=== PATIENT | male | born 1965 | race Caucasian/White ===

== ENCOUNTER 2017-04-15 14:36 | Emergency (ER) | payer SELFPAY ==
[2017-04-15] MEDS ORDERED: NS 1,000 ML IV ONE (14:44)
[2017-04-15] MEDS ORDERED: levETIRAcetam 1,000 MG in NS 100 ML IV ONE (14:45)
--- NOTE | 2017-04-15 14:48 | EDPHY ---
H & P Stated Complaint: mult seizures HPI/ROS: CHIEF COMPLAINT: Seizure HISTORY OF PRESENT ILLNESS: The patient is a 51-year-old man who comes to the emergency department after a seizure this morning. He has a history of epilepsy but does not take any anti seizure medication. He also has a history of clotting disorder factor 5 Leiden and takes Xarelto daily. He states that he discontinued all of his other medication about 5 weeks ago because he did not like the side effects. He has not been on a seizure medication that he can list. He had a seizure last night that was uneventful except for abrasions to his nose. This morning he had a 2nd seizure in the gravel driveway witnessed by his friend. It lasted for less than a minute. He has abrasions to his left eyebrow. He states that his vision is normal. He denies headache or neck pain. He was incontinent of urine and has abrasion to the left side of his tongue. He was given Zofran by EMS. REVIEW OF SYSTEMS: Constitutional: denies: chills, fever, recent illness, recent injury EENTM: denies: blurred vision, double vision, nose congestion Respiratory: denies: cough, shortness of breath Cardiac: denies: chest pain, irregular heart rate, lightheadedness, palpitations Gastrointestinal/Abdominal: denies: abdominal pain, diarrhea, nausea, vomiting, blood streaked stools Genitourinary: denies: dysuria, frequency, hematuria, pain Musculoskeletal: denies: joint pain, muscle pain Skin: denies: lesions, rash, jaundice, bruising Neurological: See HPI denies: headache, numbness, paresthesia, tingling, dizziness, weakness Hematologic/Lymphatic: denies: blood clots, easy bleeding, easy bruising Immunologic/allergic: denies: HIV/AIDS, transplant EXAM: GENERAL: Well-appearing, well-nourished and in no acute distress. HEAD: Atraumatic, normocephalic. EYES: Pupils equal round and reactive to light, extraocular movements intact, sclera anicteric, conjunctiva are normal. ENT: TMs normal, nares patent, mild excoriation to left side of tongue. Moist mucous membranes. NECK: Normal range of motion, supple without lymphadenopathy or JVD. LUNGS: Breath sounds clear to auscultation bilaterally and equal. No wheezes rales or rhonchi. HEART: Regular rate and rhythm without murmurs, rubs or gallops. ABDOMEN: Soft, nontender, normoactive bowel sounds. No guarding, no rebound. No masses appreciated. BACK: No CVA tenderness, no spinal tenderness, step-offs or deformities EXTREMITIES: Normal range of motion, no pitting or edema. No clubbing or cyanosis. NEUROLOGICAL: Cranial nerves II through XII grossly intact. Normal speech, normal gait. 5/5 strength, normal movement in all extremities, normal sensation PSYCH: Normal mood, normal affect. SKIN: Abrasions to nose and left eyebrow. Source: Patient, EMS Exam Limitations: No limitations - Medical/Surgical History Hx Asthma: No Hx Chronic Respiratory Disease: No Hx Diabetes: No Hx Cardiac Disease: No Hx Renal Disease: No Hx Cirrhosis: No Other PMH: seizures, Factor 5 clotting - Family History Significant Family History: No pertinent family hx - Social History Smoking Status: Light smoker Alcohol Use: Sober Drug Use: None Constitutional: Initial Vital Signs Temperature (C) 36.5 C 04/15/17 14:41 Heart Rate 92 04/15/17 14:41 Respiratory Rate 18 04/15/17 14:41 Blood Pressure 156/109 H 04/15/17 14:41 O2 Sat (%) 92 04/15/17 14:41 O2 Delivery Mode Room Air O2 (L/minute) 2 Allergies/Adverse Reactions: No Known Allergies Allergy (Unverified 04/15/17 14:45) Home Medications: Medication Instructions Recorded levETIRAcetam [Keppra 500 mg (*)] 500 mg PO BID #60 tab 04/15/17 Medical Decision Making - Diagnostics Imaging Results: Imaging Impressions Head CT 04/15/17 14:45 Impression: 1. Depressed comminuted nasal bone fractures with displacement toward the left. 2. Moderate sinusitis. 3. No intracranial hemorrhage or epidural/subdural hematoma. 4. Consider MRI of the brain without and with contrast enhancement, if there is continued clinical concern. Findings and recommendations discussed with Emergency Department physician, Niels Hunter, at 1524 hours, 04/15/2017. Final report concurs with initial preliminary interpretation. ED Course/Re-evaluation: 4:00 p.m. the patient is feeling completely better. He has received Keppra here and I will give him prescription for the same. He agrees to take it. His head CT is reassuring. No suturable laceration seen. He declines further workup or testing is eager to go home. Differential Diagnosis: Partial list of the Differential diagnosis considered include but were not limited to; seizure, intracranial hemorrhage, abrasion and although unlikely based on the history and physical exam, I also considered fracture, neck injury , withdrawal. I discussed these differential diagnoses and the plan with the patient as well as the usual and expected course. The patient understands that the diagnosis is provisional and that in medicine we are not always correct and that further workup is often warranted. Usual and customary warnings were given. All of the patient's questions were answered. The patient was instructed to return to the emergency department should the symptoms at all worsen or return, otherwise to followup with the physician as we discussed. - Data Points Laboratory Results: Laboratory Results 04/15/17 14:21 04/15/17 14:21 04/15/17 04/15/17 04/15/17 14:21 14:21 14:21 WBC 12.22 10^3/uL H 10^3/uL (3.80-9.50) RBC 5.05 10^6/uL 10^6/uL (4.40-6.38) Hgb 17.2 g/dL g/dL (13.7-17.5) Hct 49.9 % % (40.0-51.0) MCV 98.8 fL fL (81.5-99.8) MCH 34.1 pg pg (27.9-34.1) MCHC 34.5 g/dL g/dL (32.4-36.7) RDW 15.9 % H % (11.5-15.2) Plt Count 186 10^3/uL 10^3/uL (150-400) MPV 10.0 fL fL (8.7-11.7) Neut % (Auto) 80.5 % H % (39.3-74.2) Lymph % (Auto) 10.2 % L % (15.0-45.0) [place] % (Auto) 8.3 % % (4.5-13.0) Eos % (Auto) 0.2 % L % (0.6-7.6) Baso % (Auto) 0.3 % % (0.3-1.7) Nucleat RBC Rel Count 0.0 % % (0.0-0.2) Absolute Neuts (auto) 9.84 10^3/uL H 10^3/uL (1.70-6.50) Absolute Lymphs (auto) 1.25 10^3/uL 10^3/uL (1.00-3.00) Absolute Monos (auto) 1.01 10^3/uL H 10^3/uL (0.30-0.80) Absolute Eos (auto) 0.02 10^3/uL L 10^3/uL (0.03-0.40) Absolute Basos (auto) 0.04 10^3/uL 10^3/uL (0.02-0.10) Absolute Nucleated RBC 0.00 10^3/uL 10^3/uL (0-0.01) Immature Gran % 0.5 % % (0.0-1.1) Immature Gran # 0.06 10^3/uL 10^3/uL (0.00-0.10) PT 13.2 SEC SEC (12.0-15.0) INR 1.01 (0.83-1.16) Sodium 142 mEq/L mEq/L (134-144) Potassium 3.4 mEq/L L mEq/L (3.5-5.2) Chloride 98 mEq/L mEq/L (97-110) Carbon Dioxide 15 mEq/l L mEq/l (22-31) Anion Gap 29 mEq/L H mEq/L (8-16) BUN 16 mg/dL mg/dL (7-23) Creatinine 1.1 mg/dL mg/dL (0.7-1.3) Estimated GFR > 60 Glucose 105 mg/dL H mg/dL (70-100) Calcium 9.7 mg/dL mg/dL (8.5-10.4) Medications Given: Discontinued Medications Sodium Chloride (Ns) 1,000 mls @ 0 mls/hr IV ONCE ONE; Wide Open PRN Reason: Protocol Stop: 04/15/17 14:45 Last Admin: 04/15/17 15:29 Dose: 1,000 mls Levetiracetam 1,000 mg/ Sodium (Chloride) 110 mls @ 440 mls/hr IV EDNOW ONE Stop: 04/15/17 14:59 Last Admin: 04/15/17 15:49 Dose: 110 mls Lorazepam (Ativan Injection) 1 mg IVP EDNOW ONE Stop: 04/15/17 15:02 Last Admin: 04/15/17 15:30 Dose: 1 mg Departure - Departure Disposition: Home, Routine, Self-Care Clinical Impression: Seizure disorder, Abrasion Condition: Fair Instructions: Abrasion (ED), Recurrent Seizures in Adults (ED) Referrals: Patient,NotPresent [Unknown] - As per Instructions Niels Altamirano DO [Doctor of Osteopathy] - As per Instructions Prescriptions: levETIRAcetam [Keppra 500 mg (*)] 500 mg PO BID #60 tab
[2017-04-15 14:56] LABS: % IMMATURE GRANULYOCYTES 0.5 % (0.0-1.1); ABSOLUTE IMMATURE GRANULOCYTES 0.06 10^3/uL (0.00-0.10); ADD DIFF? NO; ADD MORPH? NO; ADD SCAN? NO; ATYPICAL LYMPHOCYTE FLAG 0 (0-99); FRAGMENT RBC FLAG 0 (0-99); HEMATOCRIT 49.9 % (40.0-51.0); HEMOGLOBIN 17.2 g/dL (13.7-17.5); LEFT SHIFT FLG 0 (0-99); LIPEMIA HEMOLYSIS FLAG 90 (0-99); MEAN CELL HEMOGLOBIN 34.1 pg (27.9-34.1); MEAN CELL HEMOGLOBIN CONCENTR. 34.5 g/dL (32.4-36.7); MEAN CELL VOLUME 98.8 fL (81.5-99.8); PLATELET CLUMPS FLAG 0 (0-99); PLATELET COUNT 186 10^3/uL (150-400); RED BLOOD CELL COUNT 5.05 10^6/uL (4.40-6.38); RED CELL DISTRIBUTION WIDTH 15.9 % (11.5-15.2)
[2017-04-15] MEDS ORDERED: LORazepam 2 MG/ML INJ ONE (14:58)
[2017-04-15] MEDS ORDERED: LORazepam 2 MG/ML INJ IVP ONE (15:01)
[2017-04-15 15:03] LABS: INR 1.01 (0.83-1.16); PROTIME(PATIENT) 13.2 SEC (12.0-15.0)
[2017-04-15 15:07] VITALS: RESP 18
[2017-04-15 15:09] LABS: ANION GAP 29 mEq/L (8-16); CALCIUM 9.7 mg/dL (8.5-10.4); CARBON DIOXIDE 15 mEq/l (22-31); CHLORIDE 98 mEq/L (97-110); CREATININE 1.1 mg/dL (0.7-1.3); GLOMERULAR FILTRATION RATE > 60; GLUCOSE 105 mg/dL (70-100); POTASSIUM 3.4 mEq/L (3.5-5.2); SODIUM 142 mEq/L (134-144)
[2017-04-15 16:40] VITALS: BP 141/102; PULSE 99; TEMP 98.6; O2SAT 92
== END 2017-04-15 17:07 | disposition home or self-care (01) ==
DX: S00.31XA Abrasion of nose, initial encounter (principal); S00.212A Abrasion of left eyelid and periocular area, initial encounter; G40.909 Epilepsy, unspecified, not intractable, without status epilepticus; F17.200 Nicotine dependence, unspecified, uncomplicated; X58.XXXA Exposure to other specified factors, initial encounter
CPT/HCPCS: 96365; J1953; J2060

== ENCOUNTER 2017-05-15 11:33 | Emergency (ER) | payer SELFPAY ==
[2017-05-15 11:47] VITALS: RESP 15; TEMP 97.9
--- NOTE | 2017-05-15 13:42 | EDPHY ---
H & P Time Seen by Provider: 05/15/17 13:23 HPI/ROS: CHIEF COMPLAINT: "I need more medicine " HISTORY OF PRESENT ILLNESS: 51-year-old male recently moved here from [place] , intermittently homeless, history of factor 5 Leiden disorder, multiple vascular stents, history of chronic leg pain secondary to his multiple stents, daily Xarelto, hydrocodone 10 mg, requesting refill of these medications, has been out for few days. Has no local primary care established . He is requesting 120 tablets of hydrocodone 10 mg. denies acute complaints. PRIMARY CARE PROVIDER: REVIEW OF SYSTEMS: A ten point review of systems was performed and is negative with the exception of the items mentioned in the HPI PHYSICAL EXAM (Prior to examination, patient consented to physical exam, hands were washed and my usual and customary physical exam procedures followed) 1) GENERAL: Well-developed, well-nourished, alert and oriented. Appears to be in no acute distress. 2) HEAD: Normocephalic 3) HEENT: sclera anicteric 4) LUNGS: Breathing comfortably. Smoking Status: Light smoker Constitutional: Initial Vital Signs Temperature (C) 36.6 C 05/15/17 11:43 Heart Rate 92 05/15/17 11:43 Respiratory Rate 15 05/15/17 11:43 Blood Pressure 130/85 H 05/15/17 11:43 O2 Sat (%) 93 05/15/17 11:43 O2 Delivery Mode Nasal Cannula Allergies/Adverse Reactions: No Known Allergies Allergy (Unverified 05/15/17 11:42) Home Medications: Medication Instructions Recorded levETIRAcetam [Keppra 500 mg (*)] 500 mg PO BID #60 tab 04/15/17 Hydrocodone/APAP 5/325 [Buford 1 tab PO Q6 PRN #15 tab 05/15/17 5/325 (RX)] Rivaroxaban [Xarelto 15mg (*)] 15 mg PO DAILY #30 tab 05/15/17 MDM/Departure - [facility] ED Course/Re-evaluation: 1:45 p.m.: increment manager will be consulted. Patient has history of chronic pain with no local primary care provider. 2:10 p.m.: increment manager has arranged an appointment on Thursday (today is Ricci ) at the [facility]. I will prescribe the patient 15 tablets of hydrocodone and given him Hospital narcotic policy and also refilled his Xarelto 20 mg once daily.Care of patient under supervision of secondary supervising physician Dr Eastman . - Depart Disposition: Home, Routine, Self-Care Clinical Impression: Factor 5 Leiden mutation, heterozygous Chronic pain Qualifiers: Chronic pain type: chronic pain syndrome Qualified Code(s): G89.4 - Chronic pain syndrome Condition: Good Instructions: Narcotic Pain Management (ED) Additional Instructions: Return to the ER if you develop new or worsening symptoms or any other symptoms that concern you Prescriptions: Hydrocodone/APAP 5/325 [Buford 5/325 (RX)] 1 tab PO Q6 PRN #15 tab PRN Reason: Pain, Severe Rivaroxaban [Xarelto 15mg (*)] 15 mg PO DAILY #30 tab Referrals: [facility],. [Clinic] - 05/19/17
--- NOTE | 2017-05-15 14:25 | ASMTCMCOM ---
CM Note CM Note Notes: Pt scheduled at [facility] for Saturday 05/19 at 9:10 am. Managed care information completed Pt is currently homeless with no medical insurance. Narcotic seeking with significant pain. Pt was informed that ED is unable to provide refills for narcotics. Pt indicated that he will utilize [facility] for refills. Felipe was MAPED Date Signed: 05/15/2017 02:24 PM Electronically Signed By:Anahi Aquino LCSW
[2017-05-15 14:34] VITALS: BP 139/86; PULSE 86; O2SAT 94
== END 2017-05-15 14:33 | disposition home or self-care (01) ==
DX: D68.51 Activated protein C resistance (principal); G89.4 Chronic pain syndrome; F17.200 Nicotine dependence, unspecified, uncomplicated